=== PATIENT | female | born 1985 | race Caucasian/White ===

== ENCOUNTER → 2016-07-23 | Outpatient (CLI) | payer SELFPAY ==
--- NOTE | 2016-07-23 16:49 | CR ---
EXAMINATION: Pelvis and left hip HISTORY: Pain COMPARISON: 04/02/2016, 01/22/2016 TECHNIQUE: AP pelvis and 2 views of the left hip FINDINGS: Again noted are postoperative sclerotic changes to the left femoral head. There is mild fl attening of the anterior superior cortical surface of the femoral head also grossly unchanged. There is a trace joint space narrowing within the left hip. The remaining visualized osseous structures a ppear preserved. Bone mineralization is normal. The SI joints are symmetric. IMPRESSION: 1. Stable postoperative changes within the left femoral head with a trace joint space narrowing.
== END ==
LOC: MW.CHORTHO 07:49
PROVIDERS: ATTEND Orthopaedic Surgery
DX: M25.552 Pain in left hip (principal); M79.89 Other specified soft tissue disorders
CPT/HCPCS: 73502-26-LT; 73502-LT

== ENCOUNTER 2016-11-13 06:48 | Day surgery (SDC) | payer BC, MEDICAID, OTHER, SELFPAY ==
[~2016-11-13 06:48] MED LIST: Lactated Ringers 1,000 ML IV SCH; ceFAZolin 1 GM in Premix Bag 1 BAG IV SCH
[2016-11-13] MEDS ORDERED: Lidocaine 1% 50 ML MDV ONE (07:33)
--- NOTE | 2016-11-13 07:38 | PCM.PREANE ---
Preanesthetic Assessment - Procedure Proposed Procedure: left knee arthroscopy - Anesthesia/Transfusion/Family Hx Anesthesia History: Prior Anesthesia Without Reaction Other Type of Anesthesia Reaction Comment: states seizure (shaking) after morphine and demerol. Family History of Anesthesia Reaction: No Transfusion History: No Prior Transfusion(s) Additional History: History with post surgery demerol, benedryl and morphine must be noted. however , she has had multiple surgeries without anesthetic problems including here at [place]. - Review of Systems General: No Symptoms Pulmonary: No Symptoms Cardiovascular: No Symptoms Gastrointestinal: No symptoms Neurological: Difficulty Walking (pain in hip and knee) Other: Reports: Liver Problems (stated "enlarged liver" also seen on old charting) - Physical Assessment NPO Status Date: 11/12/16 NPO Status Time: 22:30 O2 Sat by Pulse Oximetry: 97 Respiratory Rate: 14 Vital Signs: Last Vital Signs Temp 98.1 F 11/13/16 06:55 Pulse 91 11/13/16 06:55 Resp 14 11/13/16 06:55 BP 112/63 11/13/16 06:55 Pulse Ox 97 11/13/16 06:55 Height: 5 ft Weight: 118 lb ASA Class: 2 Mental Status: Alert & Oriented x3 Dentition: Reports: Normal Dentition Thyro-Mental Finger Breadths: 3 Mouth Opening Finger Breadths: 3 ROM/Head Extension: Full Lungs: Clear to auscultation, Normal respiratory effort Cardiovascular: Regular Rate, Regular Rhythm, No Murmurs - Lab Values: Laboratory Last Values Urine HCG, Qual NEGATIVE (NEGATIVE) 11/13/16 06:48 - Allergies Allergies/Adverse Reactions: Allergies Allergy/AdvReac Type Severity Reaction Status Date / Time No Known Allergies Allergy Verified 11/08/16 11:16 - Blood Blood Available: No Product(s) Available: None - Acknowledgements Anesthesia Type Planned: General Anesthesia (LMA) Pt an Appropriate Candidate for the Planned Anesthesia: Yes Alternatives and Risks of Anesthesia Discussed w Pt/Guardian: Yes Pt/Guardian Understands and Agrees with Anesthesia Plan: Yes PreAnesthesia Questionnaire HEENT History: Reports: Other (See Below) Other HEENT History: wears glasses/contacts Cardiovascular History: Reports: None Respiratory History: Reports: None Gastrointestinal History: Reports: None Other Gastrointestinal History: states has enlarged liver Genitourinary History: Reports: None Other Genitourinary History: hx kidney stone OWNER/PHOTOGRAPHER History: Reports: None Musculoskeletal History: Reports: None Neurological History: Reports: Seizure, Other (See Below) Other Neuro History: allergy induced, from to much narcotics, has motion sickness Psychiatric History: Reports: None Endocrine/Metabolic History: Reports: None Hematologic History: Reports: None Immunologic History: Reports: None Oncologic (Cancer) History: Reports: None Dermatologic History: Reports: Eczema Other Dermatologic History: bilateral upper arms - Past Surgical History Head Surgeries/Procedures: Reports: None HEENT Surgical History: Reports: None Cardiovascular Surgical History: Reports: None Respiratory Surgical History: Reports: None GI Surgical History: Reports: Cholecystectomy Female Surgical History: Reports: None Endocrine Surgical History: Reports: None Neurological Surgical History: Reports: None Musculoskeletal Surgical History: Reports: Arthroscopic Knee, Arthroscopic Procedure Other Musculoskeletal Surgeries/Procedures:: bilateral knee arthroscopy, left hip arthroscopy Oncologic Surgical History: Reports: None Dermatological Surgical History: Reports: None - SUBSTANCE USE Smoking Status *Q: Never Smoker Recreational Drug Use History: No - HOME MEDS Home Medications: Home Meds Diclofenac Submicronized [Zorvolex] 35 mg PO ASDIRECTED PRN 11/08/16 [History] Promethazine [Phenergan] 12.5 mg PO ASDIRECTED PRN 11/08/16 [History] - CURRENT (IN HOUSE) MEDS Current Meds: Current Medications Hydrocodone Bitart/Acetaminophen (Sula 325-5 Mg) 1 - 2 tab PO Q4H PRN PRN Reason: Pain Lactated Ringer's (Ringers, Lactated) 1,000 mls @ 100 mls/hr IV ASDIRECTED [facility] Last Admin: 11/13/16 07:03 Dose: 100 mls/hr Cefazolin Sodium/Dextrose 1 gm (/ Premix) 50 mls @ 100 mls/hr IV ONCALL [facility]
[2016-11-13] MEDS ORDERED: Lidocaine 2% 5 ML SDV ONE (07:50)
[2016-11-13] MEDS ORDERED: Propofol 200 MG/20 ML SDV ONE (07:51)
[2016-11-13] MEDS ORDERED: fentaNYL 100 MCG/2 ML SDV ONE ×2 (07:51→08:40)
[2016-11-13] MEDS ORDERED: Midazolam 1 MG/ML 2 ML SDV ONE (07:51)
[2016-11-13] MEDS ORDERED: ceFAZolin 1 GM Vial ONE (07:56)
[2016-11-13] MEDS ORDERED: Sodium Chloride 0.9% 20 ML ONE (07:56)
[2016-11-13] MEDS ORDERED: Acetaminophen/HYDROcodone 325-5 MG Tab PO PRN (08:00)
[2016-11-13] MEDS ORDERED: Ketorolac 30 MG/ML SDV ONE (08:18)
[2016-11-13] MEDS ORDERED: Ondansetron 4 MG/2 ML SDV ONE (08:18)
[2016-11-13] MEDS ORDERED: fentaNYL 100 MCG/2 ML SDV IVPUSH PRN (08:19)
--- NOTE | 2016-11-13 08:45 | PCM.OPNOTE ---
- General Post-Op/Procedure Note Date of Surgery/Procedure: 11/13/16 Operative Procedure(s): L knee arthroscopy with PLM Post-Op Diagnosis: L knee lateral meniscus tear Anesthesia Technique: General LMA Primary Surgeon: Chandrika Johnson Pigment Making Supervisor: Eliazar Loco in mLs: 5 Condition: Good Free Text/Narrative:: tt=17 min #[id number]
--- NOTE | 2016-11-13 09:53 | PCM.POSTAN ---
POST ANESTHESIA ASSESSMENT - MENTAL STATUS Mental Status: alert, oriented - RESPIRATORY Respiratory Status: respiratory rate WNL, airway patent, O2 saturation stable - CARDIOVASCULAR CV Status: pulse rate WNL, blood pressure stable - GASTROINTESTINAL GI Status: no symptoms - PAIN Pain Score: 0 - POST OP HYDRATION Hydration Status: adequate & stable - OBSERVATIONS Free Text/Narrative:: Transfer to phase II in [facility] bed.
[2016-11-13 10:50] VITALS: BP 102/70
--- NOTE | 2016-11-13 11:45 | PCM48HPAN ---
Post Anesthesia Note - EVALUATION WITHIN 48HRS OF ANESTHETIC Vital Signs in Normal Range: Yes Patient Participated in Evaluation: Yes Respiratory Function Stable: Yes Airway Patent: Yes Cardiovascular Function Stable: Yes Hydration Status Stable: Yes Pain Control Satisfactory: Yes Nausea and Vomiting Control Satisfactory: Yes Mental Status Recovered: Yes
--- NOTE | 2016-11-13 12:28 | OR ---
SURGEON: Chandrika Johnson MD DATE OF PROCEDURE: 11/13/2016 PREOPERATIVE DIAGNOSIS: Left knee pain. POSTOPERATIVE DIAGNOSIS: Left knee lateral meniscus tear. PROCEDURE: Left knee arthroscopy with partial lateral meniscectomy. STAINED GLASS JOINER: Janak Loco PA-C. ANESTHESIA: General. ESTIMATED BLOOD LOSS: 5 mL. TOURNIQUET TIME: 17 minutes. COMPLICATIONS: None. DVT PROPHYLAXIS: Not indicated. IMPLANTS USED: None. BRIEF HISTORY: Melanie is a 31-year-old female, who has had complaint of progressive left knee pain. She has undergone a left knee arthroscopy at an outlying facility approximately 3 years ago. At that time, she was told she had a partial tear of her ACL along with a cartilage tear. She has had an MRI recently which was grossly unremarkable. Due to her lack of response to conservative treatment, I did recommend surgical intervention. The risks and goals of procedure were discussed with the patient and were documented preoperatively. She agreed to proceed. DESCRIPTION OF PROCEDURE: The patient was properly identified and brought to the operating room. She was transferred from the OR cart and placed on the operating table in supine position. General anesthesia was administered. After adequate anesthesia was obtained, a well-padded tourniquet was applied to the left lower extremity. The left lower extremity was then prepped in standard fashion using ChloraPrep solution. It was then sterilely draped. A time-out was performed to ensure correct site and procedure. Preoperative antibiotics were given. The surgical site had been marked preoperatively. An Esmarch was used to exsanguinate the left lower extremity and the tourniquet was inflated to 250 mmHg. A lateral portal arthrotomy was established. Blunt trocar and cannula were introduced into the suprapatellar pouch. Camera, inflow, and outflow were assembled. There were some bands of tissue in the suprapatellar pouch which may have been causing some impingement. No synovitis was noted. The patellofemoral joint was inspected. No degenerative changes were noted. The patella appeared to track centrally. I then extended down the lateral and medial gutter. No loose bodies were identified. I then entered the medial compartment. A medial portal arthrotomy was established. A blunt probe was inserted. The meniscus was extensively probed and found to be stable. No tears were noted. The joint surfaces appeared pristine. I then entered the notch. Both the ACL and PCL were visualized and probed and found to be intact. I then entered the lateral compartment. She did have some full-thickness longitudinal fissures along the lateral tibial plateau. These were probed and appeared to be stable. She did have some degenerative fraying along the lateral aspect of the lateral meniscus. Using a combination of biters and shaver, this was resected back to a stable remnant. The meniscus was again probed and found to be stable. No degenerative changes were noted along the lateral femoral condyle. I then re-entered the suprapatellar pouch. The adhesions were released using the shaver. A portion of the fat pad was also resected as it appeared to be causing some impingement with flexion and extension of the knee. It appeared to be slightly hypertrophied. Instruments were then removed from the knee. The portal sites were closed with 3-0 nylon. Lidocaine 1% was injected along the portal tracts. Xeroform gauze was placed over the wound and a bulky dressing was applied. The tourniquet was then deflated. She was awakened from her anesthetic and transferred back to the operating room cart. She was brought to recovery room in stable condition. All needle and sponge counts were correct. BELLA / [id number] /[id number]
== END 2016-11-13 11:00 | disposition home or self-care (01) ==
LOC: MW.SDS 06:48
PROVIDERS: ATTEND Orthopaedic Surgery
PROC: 0SBD4ZZ Excision of Left Knee Joint, Percutaneous Endoscopic Approach (ICD-10-PCS; principal; 2016-11-13)
DX: M23.301 Other meniscus derangements, unspecified lateral meniscus, left knee (principal); Z87.442 Personal history of urinary calculi; Z90.49 Acquired absence of other specified parts of digestive tract; Z98.890 Other specified postprocedural states
CPT/HCPCS: 29881; 81025; J0690; J1885; J2250; J2405; J3010; J7120; 01400; 88304; J2704